=== PATIENT | female | born 1985 | race African-American/Black ===

== ENCOUNTER 2016-07-19 20:39 | Emergency (ER) | payer MEDICAID ==
[~2016-07-19] VITALS: Ht 170.2 cm; Wt 98.4 kg
[~2016-07-19 20:39] MED LIST: CIPROFLOXACIN500 M2 ORAL
--- NOTE | 2016-07-19 21:07 | Emergency Room Report ---
History of Present Illness General Chief Complaint: Abdominal Pain Source: Patient Present Illness HPI Patient is a 31-year-old female presented after increased lower abdominal pain.. Patient gradual onset of symptoms. The patient reported having pain for the past few days. The patient stated that she finished her menstruation on the first. She reported having increased low bowel cramping as well as some nausea. She had recently been having increased dysuria. Patient recently been sick with vomiting and diarrhea which had resolved. Allergies: Coded Allergies: PENICILLINS (Verified Allergy, Unknown, 05/30/15) Patient History Past Medical History: see triage record Last Menstrual Period: Jun Reviewed Nursing Documentation: PMH: Agreed, PSxH: Agreed Nursing Documentation-PMH Past Medical History: No Stated History Review of Systems All Other Systems: negative except mentioned in HPI Physical Exam Vital Signs Date Time Temp Pulse Resp B/P Pulse Ox O2 Delivery O2 Flow Rate FiO2 07/19/16 20:45 97.9 74 18 132/83 99 Room Air Sp02 EP Interpretation: reviewed, normal General Appearance: normal inspection, well appearing, no apparent distress, alert, GCS 15 Head: atraumatic ENT: normal ENT inspection, hearing grossly normal, normal voice Neck: normal inspection, full range of motion, supple, no bony tend Respiratory: normal inspection, lungs clear, normal breath sounds, no respiratory distress, no retraction, no wheezing Cardiovascular #1: regular rate, rhythm, no edema Gastrointestinal: normal inspection, normal bowel sounds, non tender, soft, no guarding, no hernia Genitourinary: no CVA tenderness Musculoskeletal: normal inspection, back normal, normal range of motion Neurologic: normal inspection, alert, oriented x3, responsive, application administrator III-XII nml as tested, speech normal Psychiatric: normal inspection, judgement/insight normal, mood/affect normal Skin: normal inspection, normal color, no rash Medical Decision Making Diagnostic Impression: Primary Impression: UTI (urinary tract infection) Additional Impression: Gastroenteritis ER Course Patient presented for abdominal pain. Differential diagnoses included ischemic bowel, appendicitis, perforated viscus, abdominal aortic aneurysm, inferior myocardial infarction, viral gastroenteritis Patient's benign exam and does not appear to require any further imaging or laboratory testing at this time. A urinalysis showed evidence of a mild urinary tract infection and as well as negative . The patient is given a GI cocktail with complete resolution of pain.The patient is advised to follow up with primary care doctor in 1-2 days. Patient is advised to return if any worsening condition or if any changes in status that are concerning. Last Vital Signs Date Time Temp Pulse Resp B/P Pulse Ox O2 Delivery O2 Flow Rate FiO2 07/19/16 20:45 97.9 74 18 132/83 99 Room Air Status: improved Disposition: HOME, SELF-CARE Condition: Stable Scripts Dicyclomine Hcl* (BENTYL*) 10 Mg Capsule 10 MG ORAL FOUR TIMES A DAY, #20 CAP Prov: Carlos Kern 07/19/16 Nitrofurantoin Monohyd/M-Cryst* (MACROBID 100 MG*) 100 Mg Capsule 100 MG ORAL EVERY 12 HOURS, #14 CAP Prov: Carlos Kern 07/19/16 Carlos Kern Jul 19, 2016 21:07
[2016-07-19] MEDS ORDERED: Dicyclomine HCl 10mg/5ml oral soln ORAL ONE (21:15)
[2016-07-19] MEDS ORDERED: Lidocaine 2% Visc 15ml soln ORAL ONE (21:15)
[2016-07-19 21:28] VITALS: BP 102/66
[2016-07-19 21:50] LABS: APPEARANCE,URINE CLEAR
[2016-07-19 21:51] LABS: KETONES,URINE 2+ (NEGATIVE); NITRITE,URINE POSITIVE (NEGATIVE); PROTEIN,URINE 1+ (NEGATIVE)
[2016-07-19 21:52] LABS: LEUKOCYTE ESTERASE ,URINE NEGATIVE (NEGATIVE); UROBILINOGEN,URINE NORMAL MG/DL (0.0-1.0)
[2016-07-19] MEDS ORDERED: BENTYL10 MG ORAL (21:56)
[2016-07-19] MEDS ORDERED: NITROFURANTOIN100 M2 ORAL (21:56)
[2016-07-19 21:57] LABS: BACTERIA,URINE FEW /HPF; SQUAMOUS EPITHELIAL CELL,UR FEW /LPF (NONE/OCC)
[2016-07-19 22:10] VITALS: BP 110/70
== END 2016-07-19 22:10 | disposition home or self-care (01) ==
LOC: EMR 21:04
DX: N39.0 Urinary tract infection, site not specified (principal); K52.9 Noninfective gastroenteritis and colitis, unspecified; Z88.0 Allergy status to penicillin
CPT/HCPCS: 81003; 81025; 99284